=== PATIENT | male | born 1975 | race Two or more races ===

== ENCOUNTER 2021-09-17 07:23 | Day surgery (SDC) | payer OTHER ==
[~2021-09-17] VITALS: Ht 177.8 cm; Wt 89.4 kg
[2021-09-17] MEDS ORDERED: LIDOCAINE VISCOUS 2% 15ML UD ONE (10:02)
[2021-09-17] MEDS ORDERED: fentaNYL CITRATE 100 MCG/2 ML VL ONE (10:18)
[2021-09-17] MEDS ORDERED: MEPERIDINE HCL (25 MG/ML) 1ML VIAL ONE (10:18)
[2021-09-17] MEDS ORDERED: MIDAZOLAM HCL 2MG/2ML 2ml VIAL (1mg/ml) ONE (10:18)
[2021-09-17] MEDS ORDERED: DexAMETHasone SOD PHOS 10MG/1ML VIAL INJ ONE (10:24)
[2021-09-17] MEDS ORDERED: PROPOFOL 10 MG/ML 20 ML IV ONE (10:39)
[2021-09-17] MEDS ORDERED: METOCLOPRAMIDE HCL 5MG/ml INJ 2ml VIAL IV PRN (10:45)
[2021-09-17] MEDS ORDERED: LABETALOL HCL 5 MG/ML 4ML SYRINGE IV PRN (10:45)
[2021-09-17] MEDS ORDERED: ePHEDrine SULFATE 50 MG/ML AMP IV PRN (10:45)
[2021-09-17] MEDS ORDERED: ONDANSETRON HCL 4 MG/2 ML VIAL IV PRN (10:45)
[2021-09-17] MEDS ORDERED: MORPHINE SULFATE 4 MG/ML SYR/VIAL IV PRN (10:45)
[2021-09-17 11:45] VITALS: BP 124/76
== END 2021-09-17 12:00 | disposition home or self-care (01) ==
LOC: GI 07:23
PROVIDERS: ATTEND Internal Medicine Gastroenterology
DX: K59.00 Constipation, unspecified (principal); K62.5 Hemorrhage of anus and rectum; K64.8 Other hemorrhoids; K57.30 Diverticulosis of large intestine without perforation or abscess without bleeding; K29.50 Unspecified chronic gastritis without bleeding; K31.89 Other diseases of stomach and duodenum; K29.90 Gastroduodenitis, unspecified, without bleeding; K44.9 Diaphragmatic hernia without obstruction or gangrene; I10 Essential (primary) hypertension; Z87.11 Personal history of peptic ulcer disease; Z98.890 Other specified postprocedural states; Z79.899 Other long term (current) drug therapy; Z20.822 Contact with and (suspected) exposure to COVID-19
CPT/HCPCS: 43239; 45378; 88305; 88312; 88342; J1100; J2175; J2250; J2704; J3010; J7030

== ENCOUNTER → 2023-02-17 | Outpatient (CLI) | payer OTHER | END | disposition home or self-care (01) | LOC: XYW 08:48 → EEVIPCON 09:00 | PROVIDERS: ATTEND Surgery | DX: K40.90 Unilateral inguinal hernia, without obstruction or gangrene, not specified as recurrent (principal); K29.70 Gastritis, unspecified, without bleeding; R14.0 Abdominal distension (gaseous) | CPT/HCPCS: 74176 ==

== ENCOUNTER → 2023-10-21 | Outpatient (CLI) | payer OTHER ==
[2023-10-21 09:09] LABS: Alanine Aminotransferase 18 U/L (7-40); Alkaline Phosphatase 89 U/L (46-116); Anion Gap 7 (5-15); BUN/Creatinine Ratio 14.7 (10.0-20.0); Blood Urea Nitrogen 14 mg/dL (9-23); Calcium 9.8 mg/dL (8.7-10.4); Carbon Dioxide 26 mmol/L (20-30); Chloride 107 mmol/L (98-107); Glucose 104 mg/dL (74-106); Sodium 140 mmol/L (136-145)
[2023-10-21 09:10] LABS: Albumin 4.7 g/dL (3.2-4.8); Aspartate Aminotransferase 15 U/L (13-40); Total Protein 7.3 g/dL (5.7-8.2)
[2023-10-21 09:22] LABS: Bilirubin, Total 2.4 mg/dL (0.2-1.0)
== END | disposition home or self-care (01) ==
LOC: XYW 08:06
DX: K59.09 Other constipation (principal)
CPT/HCPCS: 36415; 74178; 80053; Q9967